=== PATIENT | female | born 1985 ===

== ENCOUNTER 2024-05-09 11:52 | Emergency (ER) | payer SELFPAY ==
[2024-05-09 11:56] VITALS: BP 118/87
--- NOTE | 2024-05-09 12:56 | ED.GENMED ---
History of Present Illness
<Hannah Roque PA-C - Last Filed: 05/09/24 18:14>
General
Chief Complaint: Headache
Source: patient
Exam Limitations: none
Time Seen by Provider: 05/09/24 12:54
Nursing documentation reviewed up to this point in time: agreed with
History of Present Illness
History of Present Illness:
38-year-old female with no past medical history presents emergency room today with a left-sided headache. Patient reports that this has been going on for the past 5 days. Patient has associated left-sided facial paresthesias. Patient denies any
facial droop. Patient denies any upper respiratory symptoms. Patient denies any visual changes. Patient denies any eye pain. Patient states that her pain is a 9 out of 10 and will come down to a 5-6 out of 10 with Tylenol or Advil. Patient
never had a thing like this before. Patient went to urgent care today who sent her to the emergency department for further evaluation for CAT scan. Patient denies any nausea or vomiting, photophobia, abdominal pain. Patient denies any chest pain
or shortness of breath. Patient is a neck pain. Patient denies any recent history of head or neck trauma or chiropractic manipulation. Patient denies any fevers or chills.
Review of Systems
<Hannah Roque PA-C - Last Filed: 05/09/24 18:14>
Review of Systems
All Other Systems: ROS reviewed and negative except as documented in HPI and ROS
Phy Exam
<Hannah Roque PA-C - Last Filed: 05/09/24 18:14>
Physical Exam
Physical Exam:
General: Patient is well appearing and in no acute distress; non-toxic
Skin: Warm and dry, no rashes or lesions
Head: Normocephalic, atraumatic
Eyes: Sclera non-icteric. EOMs intact. PERRLA.
Cardiac: Regular rate and rhythm, no murmurs
Pulm: Normal respiratory effort
Neuro: CN II-XII intact, no focal neurologic deficits. 5 out of 5 strength in bilateral upper and lower extremities. Normal [id number], [id number]-[id number] testing.
Psychiatric: Appropriate mood and affect.
Course
Judielt;Hannah Roque PA-C - Last Filed: 05/09/24 18:14>
Orders/Labs/Results
Orders:
Orders
05/09/24 13:11
0.9% Sodium Chloride 500 ml [Nss] 500 ml IV BOLUS
Diphenhydramine [Benadryl] 12.5 mg IV NOW STA
Ketorolac [Toradol] 15 mg IV NOW STA
Metoclopramide [Reglan] 10 mg IV NOW STA
05/09/24 13:12
CT Head W/o Iv Contrast Urgent
Comment:
Reason For Exam: left sided facial paresthesias, headache x5 days
05/09/24 13:27
Complete Blood Count/With Diff Urgent
Comprehensive Metabolic Panel Urgent
HCG, Serum Qualitative Screen Urgent
Comment: ADD ON
Lyme Progressive Urgent
05/09/24 13:33
Add On- LAB Urgent
Tests Added?: HCG qualitative serum
Abnormal Lab Results
05/09/24
13:27
MCH 31.1 H pg
(27.0-31.0)
05/09/24 13:27
05/09/24 13:27
Vital Signs
Initial and Last Documented VS:
Initial Vital Signs
Temp Pulse Resp BP Pulse Ox
98.4 F 84 18 118/87 100
05/09/24 11:56 05/09/24 11:56 05/09/24 11:56 05/09/24 11:56 05/09/24 11:56
Last Documented Vital Signs
Temp Pulse Resp BP Pulse Ox
98.4 F 65 18 103/68 99
05/09/24 11:56 05/09/24 15:07 05/09/24 15:07 05/09/24 15:07 05/09/24 15:07
<Constantin Roach, DO - Last Filed: 05/09/24 13:26>
Orders/Labs/Results
Orders:
Orders
05/09/24 13:11
0.9% Sodium Chloride 500 ml [Nss] 500 ml IV BOLUS
Diphenhydramine [Benadryl] 12.5 mg IV NOW STA
Ketorolac [Toradol] 15 mg IV NOW STA
Metoclopramide [Reglan] 10 mg IV NOW STA
05/09/24 13:12
CT Head W/o Iv Contrast Urgent
Comment:
Reason For Exam: left sided facial paresthesias, headache x5 days
05/09/24 13:27
Complete Blood Count/With Diff Urgent
Comprehensive Metabolic Panel Urgent
HCG, Serum Qualitative Screen Urgent
Comment: ADD ON
Lyme Progressive Urgent
05/09/24 13:33
Add On- LAB Urgent
Tests Added?: HCG qualitative serum
Abnormal Lab Results
05/09/24
13:27
MCH 31.1 H pg
(27.0-31.0)
05/09/24 13:27
05/09/24 13:27
Vital Signs
Initial and Last Documented VS:
Initial Vital Signs
Temp Pulse Resp BP Pulse Ox
98.4 F 84 18 118/87 100
05/09/24 11:56 05/09/24 11:56 05/09/24 11:56 05/09/24 11:56 05/09/24 11:56
Last Documented Vital Signs
Temp Pulse Resp BP Pulse Ox
98.4 F 65 18 103/68 99
05/09/24 11:56 05/09/24 15:07 05/09/24 15:07 05/09/24 15:07 05/09/24 15:07
<Hannah Roque PA-C - Last Filed: 05/09/24 18:14>
MDM/Problems Addressed
Differential Diagnosis Includes:
ddx include complex migraine, tension headache, Garcia's palsy, HSV, electrolyte derangement
MDM/Problems Addressed:
38-year-old female with no past medical history presents emergency room today with a left-sided headache. Patient reports that this has been going on for the past 5 days. Patient has associated left-sided facial paresthesias. Patient denies any
facial droop. Patient denies any head or neck trauma. On physical exam, she is well-appearing, she has no focal neurologic deficits. She has no facial droop, no eyelid droop. Patient was treated with IV Toradol, Reglan, and Benadryl, she is also
given some IV fluids. Reassessment, patient's headache has completely resolved and she no longer has any paresthesias. This is suspicious for complex migraine. Discussed with this patient. Doubt Garcia's palsy. On repeat exam, she again has no
deficits, no droop. Patient has no insurance we did discuss follow-up with an [facility] clinic. Her CBC and CMP are unremarkable. CAT scan negative. Patient stable for discharge.
Chronic conditions affecting care:
n/a
Acute Exacerbation and/or Progression of Chronic Illness:
n/a
<Hannah Roque PA-C - Last Filed: 05/09/24 18:14>
*Pulse Oximetry
Patient hypoxic: no
*Critical Care Note
Total Time (30-74mins, 75-104mins- exclusive of procedures): Not Applicable
Data Reviewed
Review of Other/Old Records Reveals: Records (No previous ER physician documentation to review ) and Discharge Summary (no discharge summary in [facility] to review)
Source: patient
Prescriptions/Medications Considered But Not Given:
n/a
Further Testing Considered But Not Given:
n/a
<Hannah Roque PA-C - Last Filed: 05/09/24 18:14>
Update Note
Update Note:
2:45 pm-- patient reports her headache has improved, patient also states that she no longer has numbness or tingling sensation in her face.
ED Attending Note
<Hannah Roque PA-C - Last Filed: 05/09/24 18:14>
-
Portions of this chart may have been created with voice recognition software.� Occasional wrong word or��sound alike� substitutions may have occurred due to the inherent limitations of voice recognition software.
<Constantin Roach DO - Last Filed: 05/09/24 13:26>
ED Attending Note
Patient seen and examined by attending physician: Yes
I performed the substantive portion of visit, reviewed & personally made and approve the management plan that is documented in note by myself or SANCHEZ.: Yes
ED Attending Note:
Seen with PA examined independently left-sided headaches and left facial numbness no twitching points of some dental pain but no obvious abscess question subtle signs to go along with Garcia's palsy
Check electrolytes Lyme titer CT of the head
Discharge Plan
Departure
Patient Disposition: Home (Routine Discharge)
Date of Disposition: 05/09/24
Time of Disposition: 14:59
Patient with high blood pressure during this ER visit?: No
Condition: Good
Discharge Problem:
Migraine headache
Instructions: Migraines (DC), Headache, Adult (DC)
Referrals:
UNKNOWN - PT DOES,NOT KNOW [Family Provider] -
Activity Restrictions/Additional Instructions:
I suspect you suffered from a complex migraine. Please return to the emergency department should you experience a return of your neurologic symptoms, facial droop, difficulty with balance, eye pain, weakness on one side of the body vs the other,
visual loss, chest pain, shortness of breath, or any other signs or symptoms concerning to you.
[facility]
[address]
[place] [id number]
[phone]
Interventions
Interventions:
*Risk Screen - Suicide Last Done: 05/09/24 11:56
*General Assessment Last Done: 05/09/24 11:56
*Neglect/Abuse Screening Last Done: 05/09/24 11:56
*Nursing Disposition Last Done: 05/09/24 15:15
ED- Neurological Assessment Last Done: 05/09/24 14:01
Discharge Date and Time
Discharge Date/Time: 05/09/24 15:16
Print Language: MALTESE
[2024-05-09] MEDS: BENADRYL 12.5 MG IV (13:22)
[2024-05-09] MEDS: REGLAN 10 MG IV (13:22)
[2024-05-09] MEDS: TORADOL 15 MG IV (13:22)
[2024-05-09] MEDS: NSS 500 IV (13:22)
[2024-05-09 13:39] LABS: % Basophils 0.6 % (0-2); % Eosinophils 1.2 % (0-6); % Immature Granulocytes 0.2 % (0-0.5); % Lymphocytes 33.5 % (20.5-51.1); % Monocytes 6.8 % (1.7-9.3); % Neutrophils 57.7 % (42.2-75.2); Absolute Basophils 0.1 10^3/uL (0-0.2); Absolute Eosinophils 0.1 10^3/uL (0-0.7); Absolute Lymphocytes 2.7 10^3/uL (1.2-3.4); Absolute Monocytes 0.6 10^3/uL (0.1-0.6); Absolute Neutrophils 4.6 10^3/uL (1.4-6.5); Hematocrit 40.3 % (37.0-47.0); Hemoglobin 13.9 g/dL (12.0-16.0); Mean Corp Hgb Conc. 34.5 g/dL (33.0-37.0); Mean Corpuscular Hgb 31.1 pg (27.0-31.0); Mean Corpuscular Volume 90.2 fL (81.0-99.0); Nucleated Red Blood Cells % 0 %; Platelet Count 346 10^3/uL (130-400); Red Blood Cell Count 4.47 10^6/uL (4.20-5.40); Red Cell Dist. Width 13.4 % (11.5-14.5)
[2024-05-09 13:52] LABS: ALT (SGPT) 18 U/L (0-35); AST (SGOT) 22 U/L (14-36); Albumin 4.9 g/dl (3.5-5.0); Alkaline Phosphatase 55 U/L (38-126); Blood Urea Nitrogen 16 mg/dl (7-17); Calcium 9.9 mg/dl (8.4-10.2); Carbon Dioxide 25 mmol/L (22-30); Chloride 104 mmol/L (98-107); Glucose 91 mg/dl (70-99); Potassium 4.8 mmol/L (3.5-5.1); Sodium 143 mmol/L (135-145); Total Bilirubin 0.3 mg/dl (0.2-1.3); Total Protein 7.8 g/dl (6.3-8.2); eGFR > 60.00
[2024-05-09 14:05] LABS: HCG, Serum Qualitative Screen Negative
[2024-05-09 15:07] VITALS: BP 103/68
[2024-05-11 11:48] LABS: Lyme Antibody Screen, EIA Negative (Negative)
== END 2024-05-09 15:16 | disposition home or self-care (01) ==
LOC: EMR 11:52
PROVIDERS: Physician Assistant; EMERGENCY PHYSICIAN Emergency Medicine
DX: G43.909 Migraine, unspecified, not intractable, without status migrainosus (principal); R20.2 Paresthesia of skin; Z59.71 Insufficient health insurance coverage
CPT/HCPCS: 99284; 96374; 96375 ×2; 96361; 70450; 80053; 84703; 85025; 86618

== ENCOUNTER → 2024-10-30 09:41 | Outpatient (REF) | payer OTHER, SELFPAY ==
[2024-11-07 06:15] LABS: HPV, High Risk Not Detected; HPV, High Risk Source Cervical
== END ==
LOC: CLINIC 09:41
PROVIDERS: ATTENDING PHYSICIAN Nurse Practitioner Adult Health
DX: Z12.4 Encounter for screening for malignant neoplasm of cervix (principal)
CPT/HCPCS: 87624